=== PATIENT | male | born 1945 | race African-American/Black ===

== ENCOUNTER 2020-01-03 00:57 | Outpatient (CLI) | payer MEDICARE, SELFPAY ==
[2020-01-03 19:18] LABS: SARS-CoV-2 RNA PCR Negative
== END 2020-01-03 00:58 | disposition home or self-care (01) ==
LOC: ANHCOVIDDT 00:58
PROVIDERS: PCP Family Medicine; Visit Provider Internal Medicine Gastroenterology
DX: Z01.812 Encounter for preprocedural laboratory examination (principal); Z20.828 Contact with and (suspected) exposure to other viral communicable diseases
CPT/HCPCS: 87635; C9803; U0003

== ENCOUNTER 2020-01-06 01:03 | Day surgery (SDC) | payer MEDICARE, SELFPAY ==
[2019-12-26 13:18] VITALS: BMI 28.1
[2020-01-06 06:27] VITALS: BP 131/82; PULSE 66; RESP 16; TEMP 36.9; O2SAT 99
[2020-01-06] MEDS: LACTATED RINGERS 1,000 ML 150 ML IV CONT (06:39)
--- NOTE | 2020-01-06 07:11 | WPDANESEPPF ---
Anes - Initial Pre Proc Eval Procedure: Operation Date: 01/06/20 07:30 Proposed Procedures p Screening Colonoscopy - Kenny Ogden MD Date/Time: 01/06/20 07:11 Surgeon: Kenny Ogden MD Pre Op Diagnosis: hx of colon polyps Patient Data Age: 74 Gender: M Height: 5 ft 6 in Weight: 76.1 kg Last Vital Signs Temp 98.5 F 01/06/20 06:27 Pulse 66 01/06/20 06:27 Resp 16 01/06/20 06:27 BP 131/82 01/06/20 06:27 Pulse Ox 99 01/06/20 06:27 Allergies Allergy/AdvReac Type Severity Reaction Status Date / Time No Known Allergies Allergy Verified 01/06/20 06:26 Home Medications Medication Instructions Recorded Confirmed Type aspirin 81 mg tablet,delayed 81 mg PO DAILY 05/21/19 12/26/19 History release atorvastatin 20 mg tablet 20 mg PO DAILY #90 tablet 12/16/19 12/26/19 Rx fosinopril 10 1 tablet PO DAILY #90 tablet 12/16/19 01/06/20 Rx mg-hydrochlorothiazide 12.5 mg tablet Patient hx anesthesia problems: none Family hx anesthesia problems: none PMFSH Social History Social History (Updated 12/16/19 @ 11:35 by Natalia Chacon) Social History: single Smoking status: Never smoker Second hand tobacco smoke exposure: No Alcohol intake: current Drinks per week: 2 Substance use: current Substance use type: marijuana Last use: week ago Additional living arrangements comments: Fiance Gender identity (if verbalized by the patient): Male Anes - Eval Final PreProcedure Day of Procedure 01/06/20 07:11 Patient weight: normal Heart: regular rate and rhythm Lungs: clear to auscultation Airway: Mallampati scale class II (poor dentition; none loose) Neurological: alert and oriented Last oral intake: >/= 8 hours ASA classification: II Emergent: no Anesthetic plan: proceed Anesthesia type and monitoring: general GIVS and standard monitoring Informed Consent: The patient's anesthetic plan and its attendant risks and benefits were discussed with the patient/family/POA. Questions were solicited and answers provided to the satisfaction of the patient/family/POA.
--- NOTE | 2020-01-06 07:56 | WPDGICN ---
Assessment and Plan Assessment and plan (1) History of colon polyps: Code(s): Z86.010 - Personal history of colonic polyps Status: Acute Assessment and Plan: Patient has a prior history of colon polyps. Plan is for follow-up colonoscopy at this time further recommendations will be given after endoscopy. GI Consult Note Consult date/time: 01/06/20 07:56 HPI: Edward Sultana is a 74 year old male seen in evaluation at the request of Dr Vasquez. patient presents for neoplasia screening. He has a history of colon polyps identified it endoscopy 5 years ago. Patient states his current weight appetite bowel movements are normal. He denies abdominal pain. His family history is noncontributory. He states his current weight appetite bowel movements normally denies any blood in his stools. Denies abdominal pain. 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 Essential (primary) hypertension Mixed hyperlipidemia Family History Family History Mother Family history of diabetes mellitus in first degree relative Father Cerebrovascular accident, Onset Age: 58 Social History Social History (Updated 12/16/19 @ 11:35 by Natalia Chacon) Social History: single Smoking status: Never smoker Second hand tobacco smoke exposure: No Alcohol intake: current Drinks per week: 2 Substance use: current Substance use type: marijuana Last use: week ago Additional living arrangements comments: Fiance Gender identity (if verbalized by the patient): Male Meds Home Medications and Allergies Home Medications Medication Instructions Recorded Confirmed Type aspirin 81 mg tablet,delayed 81 mg PO DAILY 05/21/19 12/26/19 History release atorvastatin 20 mg tablet 20 mg PO DAILY #90 tablet 12/16/19 12/26/19 Rx fosinopril 10 1 tablet PO DAILY #90 tablet 12/16/19 01/06/20 Rx mg-hydrochlorothiazide 12.5 mg tablet Allergies Allergy/AdvReac Type Severity Reaction Status Date / Time No Known Allergies Allergy Verified 01/06/20 06:26 Vital Signs Vital Signs - 24 hr 01/06/20 06:27 Temperature 98.5 F Pulse Rate 66 Respiratory Rate 16 Blood Pressure 131/82 Pulse Oximetry 99 Exam Narrative: Exam Narrative: Physical exam reveals patient to be alert. Vital signs stable. HEENT exam unremarkable. Lungs are clear to auscultation and percussion. Heart is without murmur or extra sounds. Abdominal exam bowel sounds are present soft nontender with no organomegaly. Digital external rectal exam normal.
[2020-01-06 07:57] VITALS: BP 96/63; PULSE 61; RESP 17; O2SAT 98
[2020-01-06 08:07] VITALS: BP 115/72; PULSE 48; RESP 17; O2SAT 100
[2020-01-06 08:17] VITALS: BP 124/80; PULSE 72; RESP 16; O2SAT 100
== END 2020-01-06 08:36 | disposition home or self-care (01) ==
PROVIDERS: PCP Family Medicine; Visit Provider Internal Medicine Gastroenterology
PROC: 0DJD8ZZ Inspection of Lower Intestinal Tract, Via Natural or Artificial Opening Endoscopic (ICD-10-PCS; CPT 45378; principal; 2020-01-06 07:30)
DX: Z12.11 Encounter for screening for malignant neoplasm of colon (principal); K63.5 Polyp of colon; K64.8 Other hemorrhoids; K57.30 Diverticulosis of large intestine without perforation or abscess without bleeding; I10 Essential (primary) hypertension; E78.2 Mixed hyperlipidemia; Z79.82 Long term (current) use of aspirin; Z79.899 Other long term (current) drug therapy
CPT/HCPCS: 45385; 88305; J2704; J7120

== ENCOUNTER 2020-07-16 13:40 | Outpatient (CLI) | payer MEDICARE, SELFPAY | END 2020-07-16 13:41 | disposition home or self-care (01) | LOC: ANHCOVIDVC 13:40 | PROVIDERS: PCP Family Medicine | DX: Z23 Encounter for immunization (principal) | CPT/HCPCS: 0001A; 91300 ==

== ENCOUNTER 2020-08-06 13:44 | Outpatient (CLI) | payer MEDICARE, SELFPAY | END 2020-08-06 13:45 | disposition home or self-care (01) | LOC: ANHCOVIDVC 13:44 | PROVIDERS: PCP Family Medicine | DX: Z23 Encounter for immunization (principal) | CPT/HCPCS: 0002A; 91300 ==

== ENCOUNTER → 2020-12-22 08:29 | Outpatient (CLI) | payer MEDICARE, SELFPAY ==
--- NOTE | ~2020-12-22 | XR_ITS ---
EXAMINATION: XR lumbar spine min 4V DATE: 12/22/2020 08:49 INDICATION: Low back pain TECHNIQUE: Anteroposterior, lateral, and bilateral oblique views of the lumbar spine, and cone-down l ateral view of the lumbosacral junction were obtained. COMPARISON: None. FINDINGS: There is no fracture, dislocation, or subluxation. The vertebral body heights are maintaine d. There is mild loss of intervertebral disc space height at L1-2 and L4-5. Small degenerative osteop hytes project from the anterior endplates of multiple vertebral bodies. 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 Calcified atherosclerosis is noted. IMPRESSION: 1. Mild to moderate lumbar spondylosis without acute findings. Reviewed, dictated and finalized at location B.
== END ==
PROVIDERS: PCP Family Medicine; Visit Provider Family Medicine
DX: M47.896 Other spondylosis, lumbar region (principal)
CPT/HCPCS: 72110

== ENCOUNTER 2022-09-30 07:40 | Outpatient (CLI) | payer MEDICARE, SELFPAY ==
--- NOTE | ~2022-09-30 | CT_ITS ---
EXAMINATION: CT diagnostic chest wo con DATE: 09/30/2022 07:53 INDICATION: Follow-up pulmonary nodules TECHNIQUE: Computed tomography (CT) of the chest was performed without intravenous contrast. The dose -length product was 104.84 mGy-cm. Automated exposure control and iterative reconstruction technique were employed. COMPARISON: None FINDINGS: There is a calcified granuloma in the right lower lobe. There are calcified right hilar and mediastinal lymph nodes, consistent with chronic granulomatous disease. No significant pleural or pe ricardial effusion. Mildly enlarged right paratracheal lymph node, likely reactive. The upper abdomen is unremarkable. There is a 5 mm right upper lobe nodule, image 28. There is a 2 mm right upper lobe nodule, image 31. There is 2 mm left lower lobe nodule, superior segment, image 45. There is a 5 mm left lower lobe nodule, image 59. There is a 2 mm fissural nodule on the left, image 57 no endobronch ial lesions. No focal airspace disease. No pneumothorax. Mild thoracic spondylosis. IMPRESSION: 1. Bilateral pulmonary nodules measuring 5 mm or less. Recommend comparison to previous outside CT to assess stability. If prior outside CTs are not available, six-month follow-up CT recommended. Reviewed, dictated and finalized at location B. IMPRESSION: 1. Bilateral pulmonary nodules measuring 5 mm or less. Recommend comparison to previous outside CT to assess stability. If prior outside CTs are not available , six-month follow-up CT recommended.
== END 2022-09-30 07:41 | disposition home or self-care (01) ==
PROVIDERS: PCP Family Medicine; Visit Provider Family Medicine
DX: R91.8 Other nonspecific abnormal finding of lung field (principal)
CPT/HCPCS: 71250

== ENCOUNTER 2023-04-11 07:41 | Outpatient (CLI) | payer MEDICARE, SELFPAY ==
--- NOTE | ~2023-04-11 | CT_ITS ---
CT Scan of the Chest without Contrast: Clinical Indication: Abnormal finding of lung field, smoking history Technique: Contiguous sections were acquired throughout the chest without intravenous contrast. Dose reduction technique was used on this scan by utilizing automated exposure control and iterative recon struction technique. The dose-length product (DLP) was 97.62 mGy-cm. COMPARISON: 09/30/2022 Findings: There is no evidence of any significant mediastinal, hilar or axillary lymphadenopathy. The mediastin al soft tissues appear normal. There is no evidence of pleural or pericardial effusion. Stable 5 mm right upper lobe pulmonary nodule noted (axial image 21). Stable 2 mm right upper lobe pu lmonary nodule (axial image 23). Calcified right lower lobe granuloma noted. There is stable 2 mm nod ule in the superior segment left lower lobe (axial image 40). There is stable 5 mm nodule at the left lower lobe (axial image 53). Images through the upper abdomen reveal no abnormalities. Impression: Stable subcentimeter pulmonary nodules, as detailed above. Reviewed, dictated and finalized at location . 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
== END 2023-04-11 07:42 | disposition home or self-care (01) ==
PROVIDERS: PCP Family Medicine; Visit Provider Family Medicine
DX: R91.8 Other nonspecific abnormal finding of lung field (principal)
CPT/HCPCS: 71250

== ENCOUNTER 2025-04-03 12:56 | Outpatient (CLI) | payer MEDICARE, SELFPAY ==
--- NOTE | ~2025-04-03 | CT_ITS ---
EXAMINATION:CT diagnostic chest wo con DATE: 04/03/2025 13:31 INDICATION: Screening TECHNIQUE: Computed tomography (CT) of the chest was performed without intravenous contrast. The dose-length product (DLP) was 238.16 mGy-cm. COMPARISON: April 03, 2023 FINDINGS: Stable subcentimeter right upper lobe nodule image 26 series 4, and subpleural nodule right upper lobe image 31 series 4. 5 mm left lower lobe subpleural nodule image 50 series 4 stable. 10 mm right lower lobe calcified granuloma. No acute process seen in the chest, or visualized portions of the upper abdomen. 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 Coronary artery calcification stable. The bony thorax and extrathoracic soft tissues also appear stable. Degenerative changes throughout the thoracic spine. IMPRESSION: 1. Stable bilateral radiographically benign nodules with no new or suspicious nodules. Correlate with follow-up low-dose lung cancer screening chest CT in 12 months. Lung RADS 2. 2. Several chronic findings as above. Reviewed, dictated and finalized at location A. 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 Stable bilateral radiographically benign nodules with no new or suspicious n odules. Correlate with follow-up low-dose lung cancer screening chest CT in 12 months. Lung RADS 2. 2. Several chronic findings as above.
--- OUTSIDE RECORDS SUMMARY | 2025-04-03 15:36 | XMS_ITS | Clinical Summary ---
Author Organization [facility] Address [address] [place] [address] Care Team Providers Care Hose Coupling Joiner Name Role Phone Christina Sewell MD Primary Care Provider Allergies No known active allergies Medications aspirin 81 mg tablet take 1 tablet by oral route every day 0 0 11/12/2015 Active [id number] fum-folic ac-om3 (ONE A DAY WOMEN'S DHA) 28 mg iron- 800 mcg combo pack 0 Package 0 11/12/2015 Active atorvastatin (LIPITOR) 20 mg tablet take 1 tablet by oral route every day 0 0 11/12/2015 Active HYDROcodone-acet aminophen (NORCO) 5-325 mg per tabletIndication s:Pain Take 1 tablet by mouth every 6 (six) hours as needed for pain 12 tablet 08/13/2021 Active Social History Tobacco Use Types Packs/Day Years Used Date Smoking Tobacco: Never Assessed Personal Safety Answer Date Recorded Getting School Help Needed Not on file 07/14 Sex and Gender Information Value Date Recorded Sex Assigned at Not on file 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 Gender Identity Not on file Sexual Orientation Not on file Last Filed Vital Signs Vital Sign Reading Time Taken Comments Blood Pressure 148/91 08/13/2021 1:51 PM CDT Pulse 50 08/13/2021 1:51 PM CDT Temperature 36.6 C (97.8 F) 08/13/2021 8:21 AM CDT Respiratory Rate 20 08/13/2021 1:51 PM CDT Oxygen Saturation 98% 08/13/2021 1:51 PM CDT Inhaled Oxygen Concentration - - Weight 79.4 kg (175 lb) 08/13/2021 8:21 AM CDT Height 167.6 cm (5' 6) 02/03/2016 10:52 AM CDT Body Mass Index 28.25 02/03/2016 10:52 AM CDT Plan of Treatment Not on file Insurance R HMO REF Care Teams Hose Coupling Joiner Relationship Specialty Start Date End Date Christina Sewell MD [address] [facility] [address] [place] [address] PCP - General 11/12/15
--- OUTSIDE RECORDS SUMMARY | 2025-04-03 15:36 | XMS_ITS | Clinical Summary ---
Author Organization [facility] Address [address] [place] [id number] Care Team Providers Care Pediatric Hospitalist Name Role Phone Christina Sewell MD Primary Care Provider [phone] Social History Tobacco Use Types Packs/Day Years Used Date Smoking Tobacco: Never Assessed Sex and Gender Information Value Date Recorded Sex Assigned at Not on file Legal Sex Male 4:15 PM CDT Gender Identity Not on file Sexual Orientation Not on file Plan of Treatment Health Maintenance Due Date Last Done Comments Hepatitis C 12/12/1965 DTaP, Tdap and Td Vaccines ( 1 - Tdap) 12/12/1966 Pneumococcal Vaccine: 50+ Ye ars (1 of 1 - PCV) 12/12/1997 Zoster Vaccines (1 of 2) 12/12/1997 RSV Immunization or 60+ Years (1 - 1-dose 75+ series) 12/12/2022 COVID-19 Vaccine ( - 2024-2 6 season) 2025 Influenza Adult (#1) 2025 Hepatitis A Vaccines Aged Out No long er eligible based on patient's age to complete this topic Meningococcal B Vaccine Aged Out No l onger eligible based on patient's age to complete this topic Meningococcal Vaccine Aged Out No tr cordelia eligible based on patient's age to complete this topic RSV Immunizations Under 20 Months Aged Out No longer eligible based on patient's age to complete this topic Care Teams Pediatric Hospitalist Relationship Specialty Start Date End Date Christina Sewell MD [address] [facility] [address] [place] [address] [place] [address] PCP - General 02/03/16
== END 2025-04-03 12:57 | disposition home or self-care (01) ==
PROVIDERS: PCP Family Medicine; Visit Provider Physician Assistant
DX: R91.8 Other nonspecific abnormal finding of lung field (principal)
CPT/HCPCS: 71250